=== PATIENT | female | born 1975 | race Two or more races ===

== ENCOUNTER 2020-09-10 22:58 | Inpatient (IN) | payer OTHER ==
[~2020-09-10] VITALS: Ht 162.6 cm; Wt 64.9 kg
[2020-09-10] MEDS ORDERED: ENAL-90 PO (23:11)
[2020-09-10] MEDS ORDERED: METF-961 PO (23:12)
[2020-09-10] MEDS ORDERED: LOSA50TA37 PO (23:28)
[2020-09-10 23:39] LABS: GLUCOSE,POINT OF CARE 534 MG/DL (70-110)
[2020-09-11 00:37] LABS: BASOPHILS % (AUTO) 0.3 % (0.0-2.0); EOSINOPHILS % (AUTO) 0.6 % (1.0-6.0); HEMATOCRIT 44.8 % (36-46); HEMOGLOBIN 14.6 g/dL (12.0-16.0); LYMPHOCYTES # (AUTO) 2.9 K/uL (1.0-4.8); LYMPHOCYTES % (AUTO) 14.7 % (22.0-44.0); MEAN CORPUSCULAR HEMOGLOBIN 29.1 pg (26.0-34.0); MEAN CORPUSCULAR HGB CONC 32.5 G/dL (31.0-37.0); MEAN CORPUSCULAR VOLUME 90 fL (80-100); MONOCYTES # (AUTO) 1.1 K/uL (0.1-1.0); MONOCYTES % (AUTO) 5.3 % (2.0-9.0); NEUTROPHILS # (AUTO) 15.8 K/uL (1.8-7.7); NEUTROPHILS % (AUTO) 79.1 % (40.0-70.0); PLATELET COUNT (AUTO) 204 K/uL (150-450); RED CELL DISTRIBUTION WIDTH 12.8 % (11.5-14.5)
[2020-09-11 00:40] LABS: APPEARANCE,URINE CLEAR (CLEAR); BILIRUBIN,URINE NEGATIVE (NEGATIVE); GLUCOSE, URINE (UA) >=1000 mg/dL (NEGATIVE); KETONES,URINE TRACE mg/dL (NEGATIVE); LEUKOCYTE ESTERASE ,URINE NEGATIVE (NEGATIVE); NITRATE,URINE NEGATIVE (NEGATIVE); OCCULT BLOOD,URINE NEGATIVE (NEGATIVE); PROTEIN,URINE NEGATIVE (NEGATIVE); UROBILINOGEN,URINE 0.2 mg/dL (<=1.0)
[2020-09-11 00:44] LABS: AMPHET/METH SCREEN,URINE NEGATIVE (NEGATIVE); BARBITURATE SCREEN, URINE NEGATIVE (NEGATIVE); BENZODIAZEPINES SCREEN,URINE NEGATIVE (NEGATIVE); CANNABINOID SCREEN,URINE NEGATIVE (NEGATIVE); COCAINE SCREEN,URINE NEGATIVE (NEGATIVE); METHADONE SCREEN, URINE NEGATIVE (NEGATIVE); OPIATE SCREEN,URINE NEGATIVE (NEGATIVE)
[2020-09-11 00:45] LABS: PHENCYCLIDINE SCREEN,URINE NEGATIVE (NEGATIVE)
[2020-09-11] MEDS ORDERED: SODIUM CHLORIDE 0.9% 1,000 ML IV ONE (00:45)
[2020-09-11 00:47] LABS: BACTERIA,URINE None Seen /HPF (None Seen); RBC,URINE 0-2 /HPF (0-2); WBC,URINE 0-2 /HPF (0-5)
[2020-09-11 00:52] LABS: COVID AG,FIA SOURCE NASOPHARYNGEAL
[2020-09-11 01:02] LABS: ALANINE AMINOTRANSFERASE 28 U/L (12-78); ALBUMIN 4.1 g/dL (3.4-5.0); ALKALINE PHOSPHATASE 163 U/L (46-116); ANION GAP 12 mmol/L (8-16); ASPARTATE AMINOTRANSFERASE 13 U/L (15-37); BILIRUBIN,TOTAL 0.2 mg/dL (0.1-1.0); CALCIUM, TOTAL 9.5 mg/dL (8.8-10.5); CARBON DIOXIDE 26 mmol/L (22-29); CHLORIDE 95 mmol/L (98-107); CREATININE 1.12 mg/dL (0.60-1.30); GLOMERULAR FILTR. RATE CALC 53 mL/min (>60); POTASSIUM 3.9 mmol/L (3.5-5.1); SODIUM SERUM 133 mmol/L (136-145); TOTAL PROTEIN, SERUM 7.6 g/dL (6.4-8.2); UREA NITROGEN, BLOOD 17 mg/dL (7-18)
[2020-09-11 01:23] LABS: GLUCOSE,RANDOM 554 mg/dL (70-110); LACTIC ACID 2.8 mmol/L (0.4-2.0)
[2020-09-11] MEDS ORDERED: INSULIN REGULAR, HUMAN 100 UNITS/ML IVP ONE (01:30)
[2020-09-11] MEDS ORDERED: POTASSIUM CHL 20 MEQ/0.9% NS 1,000 ML IV ONE (01:30)
[2020-09-11 01:39] LABS: GLUCOSE,POINT OF CARE 438 MG/DL (70-110)
[2020-09-11] MEDS ORDERED: RINGERS SOLUTION,LACTATED 1,000 ML IV ONE (03:00)
[2020-09-11 03:01] LABS: GLUCOSE,POINT OF CARE 256 MG/DL (70-110)
[2020-09-11] MEDS ORDERED: DEXTROSE 50%-WATER 25 GM/50 ML SYRINGE IVP PRN (03:45)
[2020-09-11] MEDS ORDERED: INSULIN GLARGINE,HUM.REC.ANLOG 100 UNITS/ML SQ ONE (03:45)
[2020-09-11] MEDS ORDERED: ONDANSETRON HCL 4 MG/2 ML VIAL IVP PRN (03:45)
[2020-09-11 04:02] LABS: ABG A-A DIFF O2 7.3 mmHg (10-20.0); ABG BASE EXCESS -4.4 mmol/L (-2.0-3.0); ABG CARBOXYHEMOGLOBIN 0.1 % (0.0-1.5); ABG HCO3 21.7 mmol/L (22.0-26.0); ABG METHEMOGLOBIN 0.3 % (0.0-1.5); ABG OXYGEN CONTENT 18.8 mL/dL (15.0-23.0); ABG OXYHEMOGLOBIN 97.6 % (94.0-100.0); ABG PCO2 31 mmHg (35-45); ABG PH 7.424 (7.35-7.450); ABG TOTAL HEMOGLOBIN 13.6 G/dL (12.0-18.0); PO2, ARTERIAL BG 105.1 mmHg (88.0-96.0); SITE, BLOOD GAS RT BRACHIAL; SOURCE, BLOOD GAS ARTERIAL; TEMPERATURE, FAHRENHEIT, BG 98.5 FAHREN (96.0-98.6)
[2020-09-11] MEDS: RINGERS SOLUTION,LACTATED 1,000 ML IV SCH ×3 (04:55→20:34)
[2020-09-11 05:43] LABS: GLUCOSE,POINT OF CARE 220 MG/DL (70-110)
[2020-09-11 08:44] VITALS: BP 144/90
[2020-09-11] MEDS: AmLODIPine BESYLATE 5 MG TABLET PO SCH (09:14)
[2020-09-11] MEDS: HEPARIN SODIUM,PORCINE 5,000 UNITS/ML VIAL SQ SCH ×3 (09:14→23:41)
[2020-09-11] MEDS: INSULIN LISPRO 100 UNITS/ML SQ PRN ×3 (09:21→20:39)
[2020-09-11 09:32] LABS: ANION GAP 7 mmol/L (8-16); CALCIUM, TOTAL 7.7 mg/dL (8.8-10.5); CARBON DIOXIDE 25 mmol/L (22-29); CHLORIDE 105 mmol/L (98-107); CREATININE 0.62 mg/dL (0.60-1.30); GLOMERULAR FILTR. RATE CALC > 60 mL/min (>60); GLUCOSE,RANDOM 219 mg/dL (70-110); POTASSIUM 3.7 mmol/L (3.5-5.1); SODIUM SERUM 137 mmol/L (136-145); UREA NITROGEN, BLOOD 11 mg/dL (7-18)
[2020-09-11 10:46] LABS: GLUCOMETER DEV NAME(LOC) 6S.1; GLUCOSE,POINT OF CARE 217 MG/DL (70-110)
[2020-09-11 13:32] LABS: GLUCOMETER DEV NAME(LOC) 6N.1; GLUCOSE,POINT OF CARE 295 MG/DL (70-110)
[2020-09-11 18:27] LABS: GLUCOMETER DEV NAME(LOC) 6N.1; GLUCOSE,POINT OF CARE 218 MG/DL (70-110)
[2020-09-11 19:30] VITALS: BP 134/86
[2020-09-11] MEDS: INSULIN GLARGINE,HUM.REC.ANLOG 100 UNITS/ML SQ SCH (20:38)
[2020-09-12 04:00] VITALS: BP 146/87
[2020-09-12] MEDS: RINGERS SOLUTION,LACTATED 1,000 ML IV SCH ×2 (05:17→15:23)
[2020-09-12 06:12] LABS: BASOPHILS % (AUTO) 0.4 % (0.0-2.0); EOSINOPHILS % (AUTO) 3.5 % (1.0-6.0); HEMATOCRIT 39.6 % (36-46); HEMOGLOBIN 13.1 g/dL (12.0-16.0); LYMPHOCYTES # (AUTO) 5.6 K/uL (1.0-4.8); LYMPHOCYTES % (AUTO) 45.2 % (22.0-44.0); MEAN CORPUSCULAR HEMOGLOBIN 29.6 pg (26.0-34.0); MEAN CORPUSCULAR VOLUME 90 fL (80-100); MONOCYTES # (AUTO) 0.6 K/uL (0.1-1.0); MONOCYTES % (AUTO) 4.4 % (2.0-9.0); NEUTROPHILS # (AUTO) 5.8 K/uL (1.8-7.7); NEUTROPHILS % (AUTO) 46.5 % (40.0-70.0); PLATELET COUNT (AUTO) 183 K/uL (150-450); RED BLOOD CELL COUNT(AUTO) 4.41 MIL/uL (4.00-5.20); RED CELL DISTRIBUTION WIDTH 13.2 % (11.5-14.5)
[2020-09-12] MEDS: INSULIN LISPRO 100 UNITS/ML SQ PRN ×3 (06:15→17:35)
[2020-09-12] MEDS: ACETAMINOPHEN 325 MG TABLET PO PRN ×2 (06:18→17:40)
[2020-09-12 06:36] LABS: ANION GAP 6 mmol/L (8-16); CALCIUM, TOTAL 8.5 mg/dL (8.8-10.5); CARBON DIOXIDE 25 mmol/L (22-29); CHLORIDE 104 mmol/L (98-107); CREATININE 0.64 mg/dL (0.60-1.30); GLOMERULAR FILTR. RATE CALC > 60 mL/min (>60); GLUCOSE,RANDOM 208 mg/dL (70-110); POTASSIUM 3.8 mmol/L (3.5-5.1); SODIUM SERUM 135 mmol/L (136-145); UREA NITROGEN, BLOOD 10 mg/dL (7-18)
[2020-09-12 06:40] LABS: GLUCOMETER DEV NAME(LOC) 6S.1; GLUCOSE,POINT OF CARE 202 MG/DL (70-110)
[2020-09-12] MEDS: AmLODIPine BESYLATE 5 MG TABLET PO SCH (08:15)
[2020-09-12] MEDS: HEPARIN SODIUM,PORCINE 5,000 UNITS/ML VIAL SQ SCH ×3 (08:15→23:38)
[2020-09-12 08:17] VITALS: BP 128/79
[2020-09-12] MEDS ORDERED: MAGNESIUM SULFATE 4 GM/WATER 100 ML IV PRN (11:15)
[2020-09-12] MEDS ORDERED: MAGNESIUM SULFATE 2 GM/WATER 50 ML IV PRN (11:15)
[2020-09-12] MEDS: MAGNESIUM OXIDE 400 MG TABLET PO PRN ×3 (11:32→23:38)
[2020-09-12 12:01] LABS: ALBUMIN 3.2 g/dL (3.4-5.0)
[2020-09-12 14:24] LABS: GLUCOMETER DEV NAME(LOC) 6N.1; GLUCOSE,POINT OF CARE 241 MG/DL (70-110)
[2020-09-12 15:35] VITALS: BP 130/81
[2020-09-12] MEDS: MetFORMIN HCL 500 MG TABLET PO SCH (17:35)
[2020-09-12 19:28] LABS: GLUCOMETER DEV NAME(LOC) 6S.1; GLUCOSE,POINT OF CARE 219 MG/DL (70-110)
[2020-09-12 20:10] VITALS: BP 118/61
[2020-09-12] MEDS: INSULIN GLARGINE,HUM.REC.ANLOG 100 UNITS/ML SQ SCH (21:54)
[2020-09-12 22:38] LABS: GLUCOMETER DEV NAME(LOC) 6S.1; GLUCOSE,POINT OF CARE 254 MG/DL (70-110)
[2020-09-13] MEDS: ACETAMINOPHEN 325 MG TABLET PO PRN (03:29)
[2020-09-13] MEDS: RINGERS SOLUTION,LACTATED 1,000 ML IV SCH (03:30)
[2020-09-13 03:50] VITALS: BP 126/68
[2020-09-13 05:58] LABS: BASOPHILS % (AUTO) 0.7 % (0.0-2.0); EOSINOPHILS % (AUTO) 3.7 % (1.0-6.0); HEMATOCRIT 40.2 % (36-46); HEMOGLOBIN 13.4 g/dL (12.0-16.0); LYMPHOCYTES # (AUTO) 4.8 K/uL (1.0-4.8); LYMPHOCYTES % (AUTO) 39.2 % (22.0-44.0); MEAN CORPUSCULAR HEMOGLOBIN 29.8 pg (26.0-34.0); MEAN CORPUSCULAR HGB CONC 33.3 G/dL (31.0-37.0); MEAN CORPUSCULAR VOLUME 89 fL (80-100); MONOCYTES # (AUTO) 0.7 K/uL (0.1-1.0); MONOCYTES % (AUTO) 5.4 % (2.0-9.0); NEUTROPHILS # (AUTO) 6.3 K/uL (1.8-7.7); PLATELET COUNT (AUTO) 182 K/uL (150-450); RED CELL DISTRIBUTION WIDTH 12.6 % (11.5-14.5)
[2020-09-13 06:11] LABS: ANION GAP 7 mmol/L (8-16); CALCIUM, TOTAL 8.2 mg/dL (8.8-10.5); CARBON DIOXIDE 25 mmol/L (22-29); CHLORIDE 104 mmol/L (98-107); CREATININE 0.66 mg/dL (0.60-1.30); GLOMERULAR FILTR. RATE CALC > 60 mL/min (>60); GLUCOSE,RANDOM 144 mg/dL (70-110); POTASSIUM 3.8 mmol/L (3.5-5.1); SODIUM SERUM 136 mmol/L (136-145); UREA NITROGEN, BLOOD 11 mg/dL (7-18)
[2020-09-13] MEDS: INSULIN LISPRO 100 UNITS/ML SQ PRN (06:21)
[2020-09-13 07:23] LABS: GLUCOMETER DEV NAME(LOC) 6N.1; GLUCOSE,POINT OF CARE 170 MG/DL (70-110)
[2020-09-13 07:46] VITALS: BP 116/73
[2020-09-13] MEDS: MetFORMIN HCL 500 MG TABLET PO SCH (08:13)
[2020-09-13] MEDS: AmLODIPine BESYLATE 5 MG TABLET PO SCH (08:13)
[2020-09-13] MEDS: HEPARIN SODIUM,PORCINE 5,000 UNITS/ML VIAL SQ SCH (08:13)
== END 2020-09-13 10:50 | DRG 638 ==
LOC: EMS 23:03 → 6S 09-11 03:39
PROVIDERS: ADMIT Internal Medicine; ATTEND Internal Medicine
DX: E11.65 Type 2 diabetes mellitus with hyperglycemia (principal); E87.1 Hypo-osmolality and hyponatremia; E87.2 Acidosis; R65.10 Systemic inflammatory response syndrome (SIRS) of non-infectious origin without acute organ dysfunction; I10 Essential (primary) hypertension; E83.42 Hypomagnesemia; R35.0 Frequency of micturition; D72.829 Elevated white blood cell count, unspecified; Z79.4 Long term (current) use of insulin; Z20.822 Contact with and (suspected) exposure to COVID-19
CPT/HCPCS: 36600; 71045; 80048; 80053; 81001; 82009; 82040; 82805; 82962; 83605; 83735; 85025; 87426; 99285; G0480; J1644; J1815; J3480; J7030; J7120; 36415-L1; 36415-TC